=== PATIENT | female | born 1985 | race Caucasian/White ===

== ENCOUNTER 2016-07-10 22:20 | Inpatient (IN) | payer OTHER ==
[~2016-07-10] VITALS: Ht 172.7 cm; Wt 77.6 kg
[~2016-07-10 22:20] MED LIST: DOCU-41 PO; IBUP-1827 PO; METF500T4 PO
[2016-07-10] MEDS ORDERED: Sodium Chloride LOK Flush 10 mL Syringe IVFLUSH PRN (22:25)
[2016-07-10] MEDS ORDERED: Oxytocin 30 Units/500 mL LR 30 UNITS in IV Premix 1 EACH IV PRN (22:25)
[2016-07-10] MEDS ORDERED: Ondansetron 2 mg/mL 2 mL Inj IVPUSH PRN ×2 (22:25→22:30)
[2016-07-10] MEDS ORDERED: Carboprost 250 mCg/mL Inj IM PRN (22:25)
[2016-07-10] MEDS ORDERED: Lactated Ringer's 1,000 ML IV PRN (22:25)
[2016-07-10] MEDS ORDERED: Methylergonovine 0.2 mg/mL Inj IM PRN (22:25)
[2016-07-10] MEDS ORDERED: Oxytocin 10 Unit/mL Inj IM PRN (22:25)
[2016-07-10] MEDS ORDERED: Hemorrhage Kit, Post Partum XX ONE (22:25)
[2016-07-10] MEDS ORDERED: fentaNYL-PF 50 mCg/mL 2 mL Inj IVPUSH PRN (22:25)
[2016-07-10] MEDS: Lactated Ringer's 1,000 ML IV SCH (22:30)
[2016-07-10] MEDS ORDERED: fentaNYL 2 mCg/mL-Bupiv 0.125% 100 ML EPIDURAL SCH (22:30)
[2016-07-10] MEDS ORDERED: EPHEDrine Sulfate 50 mg/mL Inj IVPUSH PRN (22:30)
[2016-07-10] MEDS ORDERED: Lactated Ringer's 500 ML IV ONE (22:30)
[2016-07-10] MEDS ORDERED: Atropine 1 mg/10 mL (Code) Syringe IVPUSH PRN (22:30)
[2016-07-10 22:40] LABS: Mean Corpuscular Hemoglobin 30.6 pg (27.0-35.0); Mean Corpuscular Volume 91.8 fL (81-100)
--- NOTE | 2016-07-10 23:28 | PCM.HPANE ---
Patient Data Surgeon Admitting Provider:Amaya Macias MD Attending Provider:Amaya Macias MD Primary Care Physician:oNelle Sullivan MD Other Provider:Huber Kovacs Anesthesia Reason for Visit Term Labor Check Ht/WT & BMI Body Mass Index Allergies Coded Allergies: No Known Allergies (Unverified Allergy, Unknown, 04/18/15) Past Anesthesia History Anesthesia History: Denies:: Abnormal Airway, Anesthesia Reactions, Difficult Intubation, Fam Anesthesia Reaction, Fam Malignant Hypertherm, Malignant Hyperthermia Diabetes History Hx Diabetes?: No MRSA MRSA: No Medications Hypertension Medication: No Home Meds Incl Beta Sierra: No Active Scripts Docusate Sodium (Colace)100 Mg [id number] Mg PO DAILY #30 CAPSULE Prov:Amaya Macias MD 04/20/15 Ibuprofen 600 Mg [id number] Mg PO Q6H PRN For Mild Pain #30 TABLET Prov:Amaya Macias MD 04/20/15 Reported Medications Metformin 500 Mg [id number] Mg PO BID #2 TABLET Ref 0 04/18/15 History History of ENT Problems?: No HEENT History: Denies:: Abnormal Airway Cataracts Difficult Intubation Dysphagia Glaucoma Hearing Problem Sinus Problem TMJ Denture Type: None Teeth Condition: Within Normal Limits Hx of Heart Problems?: No Cardiovascular History: Denies:: AICD Abdominal Aortic Aneurism Atrial Fibrillation Cardiac Surgery Chest Pain Congestive Heart Failure Coronary Artery Disease Edema Heart Murmur Hypertension Irregular Heartbeat Pacemaker Peripheral Vascular Rheumatic Fever Thrombophlebitis Valvular Heart Disease Hx of Respiratory Problem?: No Respiratory History: Denies:: Asthma COPD Chest Surgery Cough Dyspnea Emphysema Hemoptysis Oxygen Administration Pneumonia Pulmonary Embolism Tuberculosis Use of C-PAP Machine Use of Inhalers / NEBS Hx Neurologic Problems?: No Hx of GI Problems?: No Hx of Problems?: No Female Hx: Positive for:: Currently Hx Musculoskeletal Problems?: No Hx Surgeries?: Yes Hx Diabetes: No Hx Alcohol Use: No (not for the last 2 months)Hx Substance Use: No Smoking Status: Never Smoker Have You Smoked inLast 12 mo: No Stop/Bang VANDANA Risk Assessment: Low Risk, <3 Yes Risk Assessment Category Category 1A: Patient has history of documented sleep apnea, and HAS NOT received any narcotic, sedative or anesthesia administration during this stay. Category 1B: Patient has history of documented sleep apnea, and HAS received any narcotic , sedative or anesthesia administration during this stay Category 2: Patient has SUSPECTED Obstructive Sleep Apnea, and HAS received any narcotic , sedative or anesthesia administration during this stay. Category 3: Patient has SUSPECTED Obstructive Sleep Apnea and HAS NOT received narcotic, sedative or anesthesia administration during this stay. Category 4: Outpatient in Procedural Areas with known sleep apnea or who screen positive for High Risk via the STOP/BANG questionnaire. Exam Exam General Appearance: Alert, Oriented X3, Cooperative, No Acute Distress HEENT/AIRWAY: MP 2 Lungs: Clear to Auscultation, Normal Air Movement Heart: Exam Unremarkable, Regular Rate/Rhythm, No Murmurs/Rubs/Gallops Plan Impression Patient chart reviewed, patient interviewed and anesthestic plan with risks, benefits, and alternatives discussed, and informed consent obtained. NPO per Anesth. Guidelines: Yes ASA Physical Status: ASA1 Normal Healthy Anesthetic Plan: Epidural Bene/Risks/Altern/Consents: Yes HP Complete Prior to Induction: Yes Walt Guerin MD Jul 10, 2016 22:32
[2016-07-11] MEDS: Sodium Chloride LOK Flush 10 mL Syringe IVFLUSH SCH ×3 (00:30→16:30)
[2016-07-11] MEDS: Lactated Ringer's 1,000 ML IV SCH ×6 (01:58→22:30)
[2016-07-11] MEDS ORDERED: Carboprost 250 mCg/mL Inj IM PRN (02:00)
[2016-07-11] MEDS ORDERED: LANOlin HPA 7 Gm Ointment TOPICAL PRN (02:00)
[2016-07-11] MEDS ORDERED: oxyCODONE-Acetamin 5-325 mg Tablet PO PRN (02:00)
[2016-07-11] MEDS ORDERED: CeFAZolin Inj 2 GM in IV Premix 1 EACH IV ONE (02:00)
[2016-07-11] MEDS ORDERED: Witch Hazel-Glycerin Pads TOPICAL PRN (02:00)
[2016-07-11] MEDS ORDERED: Methylergonovine 0.2 mg/mL Inj IM PRN (02:00)
[2016-07-11] MEDS ORDERED: Hemorrhage Kit, Post Partum XX ONE (02:00)
[2016-07-11] MEDS ORDERED: Oxytocin 10 Unit/mL Inj IM PRN (02:00)
[2016-07-11] MEDS ORDERED: Oxytocin 30 Units/500 mL LR 30 UNITS in IV Premix 1 EACH IV PRN (02:00)
[2016-07-11] MEDS ORDERED: Benzocaine (Dermoplast) 20% 60 Gm Spray TOPICAL PRN (02:00)
[2016-07-11] MEDS ORDERED: HYDROcodone-APAP 5-325 mg Tablet PO PRN (02:00)
--- NOTE | 2016-07-11 02:56 | PCM.ANEP1 ---
Post Anesthesia PACU Phase 1 Assessment Vital Signs see RN notes for VS Anesthetic Administered: Epidural Level of Alertness: Awake, talking BROCK's with Equal Strength: No (slight weakness in LE) Pain: No Nausea or Vomiting: No CV Function & Hydration Stable: Yes Airway Device: none Oxygen Delivery: Room Air Lungs: Clear to Auscultation, Normal Air Movement Dermatome Level: T12 (Symphysis Pubis) Summary Catheter removed in OR, tip intact. PACU Phase 2 Assessment Complications: No Follow up Care: N/A Patient Instructions Provided: N/A Walt Guerin MD Jul 11, 2016 02:56
--- NOTE | 2016-07-11 05:12 | HP ---
[address] [address] HISTORY AND PHYSICAL PATIENT: MAYE HARLEY : 1985 MR#: [id number] ADMIT: 07/10/2016 JOB ID: [id number] HISTORY OF PRESENT ILLNESS: A 30-year-old female, 2, para 1-0-0-1, at 40 weeks 3 days, presented to [facility] for contractions. She was noticed to be 7 cm dilated with a bulging membrane, with regular contractions and a category 1 tracing. This is a patient who has routine care in [facility]. During her care, it was noticed that her blood type was AB negative and her rubella immune, varicella immune, RPR negative, HIV negative, HBsAg negative, chlamydia and gonorrhea negative. Her GCT was 102. She has a history of IUGR for previous , and this has a followup with no abnormal finding. ALLERGIES: She has no known history of allergies. PAST MEDICAL HISTORY: Declined. PAST SURGICAL HISTORY: Declined. GYNECOLOGIC HISTORY: Not significant. OBSTETRICAL HISTORY: She has one vaginal delivery in 2016. Normal vaginal delivery. Suspected IUGR, with delivery at 39 weeks. SOCIAL HISTORY: She is not smoking. She does not drink alcohol and declined drug usage. PHYSICAL EXAMINATION: She is afebrile. Cardiac RRR. No murmur. Pulmonary: Bilaterally clear. Abdomen is soft, nontender. Uterus , nontender. Completely relaxed between contractions. Extremities: Nontender. Cervix 7 cm dilated with bulging membranes. Category and tracing contraction every 3-4 minutes. ASSESSMENT AND PLAN: 1. This is a 30-year-old female, 2, para 1, at 40 weeks , in active labor. 2. The patient preferred to have epidural. She can get epidural for labor pain management. 3. Expect vaginal delivery.
--- NOTE | 2016-07-11 12:15 | OP ---
[address] [address] OPERATIVE REPORT PATIENT: MAYE HARLEY : 1985 MR#: [id number] ADMIT: 07/10/2016 JOB ID: [id number] DATE OF SURGERY: 07/11/2016 PREOPERATIVE DIAGNOSIS(ES): POSTOPERATIVE DIAGNOSIS(ES): SURGEON: Amaya Macias MD DELIVERY NOTE: A 30-year-old female, 2, para 2, now presents to [facility] for active labor. After admission, she got epidural for pain management, and she progressed to full dilation after her membrane ruptured. She starting having good effort to push. The infant delivered at an ADRIANNE position. The shoulder and chest delivered without difficulty. The was placed on mother's chest with good tone and spontaneous crying. Cord clamped after pulsation disappeared. Cord clamped and cut. The regular cord blood collected. At this time, waiting for the placenta to deliver, a gentle constant traction was used, and there were no signs of separation of the placenta. After waiting for 30 minutes after the delivery of the , gentle pulling was applied to the cord. The cord broke, and there were no signs of delivery of the placenta. The vaginal examination was performed, and I was not able to reach the placenta. At this time, the total the EBL was 300 cc. Discussed with patient that with a retained placenta and having difficulty removing in the delivery room, will plan to move to operating room and do manual removal and possibly D and C. the patient understood the risk of infection, bleeding, injury to the uterus. She understood the possibility of placenta adhesion, placenta accreta. We talked about the scenario that if the placenta could not be removed, further management, including Cook balloon, may need be placed. We talked about the worst scenario that hysterectomy may be needed. Blood transfusion consented, too. Informed consent signed. At this time, the EBL of the whole delivery was 400 cc. All instrument, needles, laps and gauzes counted correct twice.
--- NOTE | 2016-07-11 12:18 | OP ---
[address] [address] OPERATIVE REPORT PATIENT: MAYE HARLEY : 1985 MR#: [id number] ADMIT: 07/10/2016 JOB ID: [id number] DATE OF SURGERY: 07/11/2016 SURGEON: Amaya Macias MD PROCEDURE: Manual removal of placenta. PREOPERATIVE DIAGNOSIS(ES): Retained placenta. POSTOPERATIVE DIAGNOSIS(ES): Retained placenta and placental adhesion. INDICATION OF PROCEDURE: Retained placenta. The patient had a normal vaginal delivery. Thirty minutes after the delivery of the , the placenta was not able to be delivered, and the cord was broken and unable to reach the placenta at the labor room. Informed consent signed for manual removal of placenta and possible D and C in operating room. The patient understood there is risk of infection, bleeding, injury to the uterus and the organs around the uterus, including but not limited to the bladder, ureters, major vessels, nerves, and bowels. Understood the possibly of the placental adhesions, placenta accreta appropriate increta, and possibility of blood transfusion, hysterectomy. Informed consent signed. PROCEDURE IN DETAIL: The patient was transferred to the operating room. After anesthesia was noted to be adequate, she was placed in dorsal lithotomy position. She was prepared and draped in normal sterile fashion. At this time, bimanual examination was performed and noticed there was adhesion of the placenta to the uterine cavity. Gentle separation was applied to separate the placenta and the uterus. The placenta was gradually removed in one piece. Then, further examination was done to confirm the clearance of the placenta from the uterus. The uterus was well contracted after the removal of placenta. The total EBL in operating room was 200 cc. There was no need for sharp curettage. All instruments, needles, laps, and gauzes counted correct twice. The total EBL for the delivery was 400 cc in labor, 200 cc during manual removal of placenta, and total added value is 600 cc. The patient tolerated procedure well. She was transferred back to her delivery room for recovery.
[2016-07-12] MEDS: Sodium Chloride LOK Flush 10 mL Syringe IVFLUSH SCH ×2 (00:30→08:30)
[2016-07-12] MEDS: Lactated Ringer's 1,000 ML IV SCH ×2 (01:58→09:58)
--- NOTE | 2016-07-12 07:15 | PCM.DIOB ---
Obstetrical Disch Instruction Dates of Hospitalization Date of Hospital Admission Jul 10, 2016 at 22:21 Providers Admitting Physician: Amaya Macias MD Primary Care Physician: Noelle Sullivan MD Attending Physician: Amaya Macias MD Diet Discharge Diet: No restrictions Activity Discharge Activity-General: Pelvic Rest for 6 weeks, No lifting >10 pounds for 4-6 weeks Dressing and Incisional Care Hygiene: May shower, NO bathtub, hot tub or whirlpool, Perineal care, Sitz bath , Dermoplast spray, Witch Maryann pads Follow Up Plan Follow-up Provider (F9): Amaya Macias MD Follow-up appointment: Weeks (6) Call your provider for: Fever or Chills, Shortness of breath, Heavy vaginal bleeding, Red painful breasts Noelle Sullivan MD Jul 12, 2016 07:15
[2016-07-12] MEDS ORDERED: IBUP800T28 PO (07:16)
[2016-07-12] MEDS ORDERED: DOCU-41 PO (07:16)
--- NOTE | 2016-07-12 09:55 | DIS ---
[address] [address] DISCHARGE SUMMARY PATIENT: MAYE HARLEY : 1985 MR#: [id number] ADMIT: 07/10/2016 JOB ID: [id number] DIS: ADMISSION DIAGNOSES: 1. A 30-year-old, 2, para 1-0-0-1 female at 40 plus 3 weeks gestation, being admitted in labor. 2. Rh-negative status. DISCHARGE DIAGNOSES: 1. A 30-year-old, 2, para 1-0-0-1 female at 40 plus 3 weeks gestation, being admitted in labor. 2. Rh-negative status. PROCEDURES PERFORMED: 1. Spontaneous vaginal delivery of a liveborn male , born on July 11, 2016, shortly after 1 a.m. on the morning of the . 2. Retained placenta with manual extraction in the operating room. REASON FOR ADMISSION: This is a 30-year-old, G2, P 1-0-0-1 female who presented at 40 plus 3 weeks gestation complaining of regular uterine contractions. She was checked and noted to be 7 cm dilated. was complicated by Rh-negative status, and she had a history of IUGR in a previous . She was admitted in active labor. HOSPITAL COURSE: The patient was admitted and an epidural was placed for her pain relief. She quickly progressed to complete and went on to deliver the liveborn male infant. Please see the operative report for full details regarding this. Following delivery during attempted delivery of the placenta, there was a tearing of the umbilical cord and the placenta was noted to be retained. She was brought to the operating room for manual removal of the placenta. Please see this operative report as well for details regarding this. , she did well. She was tolerating a regular diet, voiding and ambulating well on her own, and her pain was well controlled with ibuprofen and Tylenol. She was breast feeding without difficulty. She had received a RhoGAM vaccine. So, at this point in time she was deemed stable for discharge. EXAMINATION ON THE DAY OF DISCHARGE: On the day of discharge, her blood pressure is 110/67, her heart rate is 88, respiratory rate 16, her temperature is 36.2. In general, she is awake, alert, oriented, in no acute distress. She is lying comfortably in bed. The remainder of the exam is deferred. INSTRUCTIONS AT DISCHARGE: The patient was advised to remain at pelvic rest for six weeks including no tampons, douching, or intercourse. She was asked to call with any signs or symptoms of infection including fever greater than 100.5 degrees, severe pain, malodorous vaginal discharge or bleeding greater than a pad per hour. Medications at discharge included: 1. Ibuprofen 800 mg p.o. q.8 h. p.r.n. pain. 2. Colace 100 mg p.o. b.i.d. 3. She was asked to continue her vitamins as prescribed. She is Rh negative and did receive RhoGAM prior to discharge. She is otherwise rubella and varicella immune. All questions and concerns of the patient were answered prior to discharge. She was deemed stable for discharge on day #1.
[2016-07-12 10:28] VITALS: BP 99/61; PULSE 83; RESP 18
--- NOTE | 2016-07-16 16:02 | PATH ---
SURGICAL PATHOLOGY Attending Physician:Amaya Macias MD CASE STATUS: Signed Out PATIENT NAME: MAYE HARLEY PID: [id number] : 1985 DATE COLLECTED:07/10/2016 00:00 SPECIMEN: Placenta CLINICAL HISTORY: RETAINED PLACENTA 1). PLACENTA FINAL DIAGNOSIS: Alvarado Placenta: Placenta parenchyma. Weight 460 grams. Multiple lacerations present within the placental disc tissue, nonspecific. Chorionic villous maturation is consistent with mature placenta. Moderate inter-and intravillous fibrin is present. No villitis identified. Umbilical cord: Length: 4.8 cm. Three vessels present. Cord attachment indeterminate. Very focal, mild funisitis present. Membranes: Rupture site indeterminate. No chorioamnionitis identified. ICD10: O43.9 GROSS DESCRIPTION: The specimen is received in formalin, labeled with the patient's name, consists of a placenta which includes the placental disc (460 g, 15.2 x 15.2 x 3.4 cm), detached membranes and detached portion of umbilical cord (length-4.8 cm, diameter-1.5 x 0.6 cm). The membrane rupture site cannot be determined. The membranes are shiny and semi-translucent. The umbilical cord contains 3 vessels. The placental disc contains multiple lacerations; therefore, the umbilical cord attachment site cannot be determined. The surface is smooth and shiny with no evidence of meconium identified. The intact maternal surface contains normal cotyledon formation. No nodules, masses or lesions are identified. Section code: (A) membranes, umbilical cord; (B, C, D-E) placenta, 3 full thickness sections. 07/13/16 ICD-9 CODES: CPT CODES: 1: 88672 Electronically Signed Out Marilou Roth MD [facility] [address], [place] [address] Technical component performed at [facility], [facility] [address], [address]
== END 2016-07-12 11:24 | disposition home or self-care (01) | DRG 767 ==
LOC: FBCO 22:20 → FBC 22:21
PROVIDERS: ADMIT Obstetrics & Gynecology; ATTEND Obstetrics & Gynecology
PROC: 10E0XZZ Delivery of Products of Conception, External Approach (ICD-10-PCS; principal; 2016-07-11)
PROC: 10D17ZZ Extraction of Products of Conception, Retained, Via Natural or Artificial Opening (ICD-10-PCS; 2016-07-11)
DX: O72.0 Third-stage hemorrhage (principal); Z37.0 Single live birth; Z3A.40 40 weeks gestation of pregnancy